=== PATIENT | male | born 1945 | race Caucasian/White ===

== ENCOUNTER 2016-10-19 23:51 | Observation (INO) | payer OTHER ==
[~2016-10-19] VITALS: Ht 276.9 cm; Wt 48.2 kg
[2016-10-20] VITALS (8 sets, daily range): BP systolic 98–127; BP diastolic 57–66
--- NOTE | 2016-10-20 00:19 | NUR ---
PT IS A 70Y/M BIB SPOUSE C/O OF MIDSTERNAL PAIN, NUMBNESS TO LT UPPER ARM W/ DIFFICULTY BREATHING. PT FEELS WEAK ON BOTH LEGS. HX DM, HEART ATTACK 10 YRS AGO.
--- NOTE | 2016-10-20 00:31 | NUR ---
DR. LYONS EVALUATED THE PT
[2016-10-20] MEDS ORDERED: ASPIRIN 325 MG TAB PO ONE (00:35)
[2016-10-20] MEDS ORDERED: MORPHINE SULFATE 4 MG/ML SYR IVP ONE (00:35)
[2016-10-20] MEDS ORDERED: NITROGLYCERIN 2% 1 GM PKT TP ONE (00:35)
--- NOTE | 2016-10-20 00:37 | NUR ---
PT MOVED TO BED 6
--- NOTE | 2016-10-20 00:52 | NUR ---
INCREMENT MANAGER AT BEDSIDE.
--- NOTE | 2016-10-20 01:30 | NUR ---
DR. LYONS REEVALUATING PT AT BEDSIDE
[2016-10-20] MEDS ORDERED: HYDROmorphone 1 MG/ML AMP IVP ONE (01:35)
[2016-10-20] MEDS ORDERED: CLOPIDOGREL 75 MG TAB PO ONE (01:35)
[2016-10-20] MEDS ORDERED: MORPHINE SULFATE 2 MG/ML SYR IVP PRN (01:40)
[2016-10-20] MEDS ORDERED: NITROGLYCERIN 0.4 MG TAB SL PRN (01:40)
[2016-10-20] MEDS ORDERED: MORPHINE SULFATE 4 MG/ML SYR IVP PRN (01:40)
[2016-10-20] MEDS ORDERED: ONDANSETRON 4 MG/2 ML VIAL IVP PRN (01:40)
[2016-10-20] MEDS ORDERED: SIMVASTATIN 40 MG TAB PO ONE (01:45)
--- NOTE | 2016-10-20 02:57 | NUR ---
CALLED TELE TO GIVE REPORT NURSE IN CHARGE WILL CALL BACK.
--- NOTE | 2016-10-20 03:00 | NUR ---
Patient will be admitted to care of DR. PANCHAL. Admited to TELEMETRY. Will go to room 120B. Belongings list completed. Report GIVEN TO CARLITO ROCA.
--- NOTE | 2016-10-20 03:10 | NUR ---
PT TRANSFERRED TO FLOOR VIA GURNEY ACCOMPANIED BY 2 RNS, ATTACHED TO TOOL GRINDER OPERATOR SURFACE. ON GUARDED CONDITION.
--- NOTE | 2016-10-20 03:35 | NUR ---
ADMITTED 70 YEAR OLD FROM ER. PT ARRIVED TO UNIT VIA GURNEY. INITIAL ASSESSMENT COMPLETED. PT AOX4. PT'S VS STABLE. PT'S SKIN IS INTACT. PT HAS IV TO RIGHT AC G 20 SL, ASYMPTOMATIC, PATENT AND INTACT. ORIENTED PT TO ROOM AND SURROUNDINGS AND USE OF CALL LIGHT. EXPLAINED PLAN OF CARE TO PT AND HE VERBALIZES UNDERSTANDING. PT STATES THAT HE IS NOT IN PAIN AT THIS TIME. WILL CONTINUE TO MONITOR PT.
--- NOTE | 2016-10-20 05:30 | NUR ---
PT TALKING WITH WHO IS AT BEDSIDE. PT STABLE, WILL CONTINUE TO MONITOR PT.
--- NOTE | 2016-10-20 06:35 | NUR ---
PT SLEEPING AT THIS TIME, NO SIGNS OF DISTRESS OR DISCOMFORT NOTED. WILL CONTINUE TO MONITOR PT.
--- NOTE | 2016-10-20 07:05 | NUR ---
ENDORSED PT IN STABLE CONDITION TO CARLITO MONTAGUE FOR CONTINUITY OF CARE.
--- NOTE | 2016-10-20 07:06 | NUR ---
RECEIVED REPORT FROM THE AIRLINE RESERVATIONIST NURSE AT BEDSIDE. PT IS MALE, MONGOLIAN SPEAKING. SPEAKS SOME MAURITIAN. PT IS ALERT AND ORIENTED. I INTRODUCED MYSELF AND UPDATED THE BOARD. PT IS HERE FOR CHEST PAIN. NO PAIN AT THIS TIME. NO OTHER COMPLAINTS. PT'S IV IS IN R AC 20G SL. SKIN IS INTACT. NOTED NO SIGNS OF EDEMA. PT HAS A CONSULT W/ DR. RODRIGUES TODAY. WE ARE STILL WAITING FOR 2 MORE TROPONIN. FIRST ONE WAS 0.018. ALL SAFETY MEASURES IN PLACE. WILL CONTINUE TO MONITOR PT.
[2016-10-20] MEDS ORDERED: ENOXAPARIN 30 MG/0.3 ML SYR SUBQ SCH ×2 (09:00→10:33)
[2016-10-20] MEDS: ATORVASTATIN 20 MG TAB PO SCH (09:18)
--- NOTE | 2016-10-20 09:30 | NUR ---
LAB CALLED : TROPONIN PAGED DR. CANO. WAITING FOR HIS RETURN CALL.
--- NOTE | 2016-10-20 10:00 | NUR ---
SPOKE TO DR. RODRIGUES. RECEIVED ORDERS FOR BOLUS 500ML NS, THEREAFTER 75ML/HR 1000ML NS. EKG STAT. LOVENOX 100ML BID. MAY NEED TO TRANSFER PT TO ICU. WE WILL WAIT FOR THE MD. DR. CANO ALSO CALLED. TOLD HIM ABOUT THE D-DIMER LEVEL AND THE TROPONIN LEVEL AND DR. RODRIGUES ORDERED. HE IS IN AGREEMENT. Addendum: 10/20/16 at 1040 by Estefany Gracia RN LOVENOX 100MG. NOT ML. Addendum: 10/20/16 at 1042 by Estefany Gracia RN PER RX CALCULATIONS: 60MG BID
[2016-10-20] MEDS ORDERED: NACL 0.9% 500 ML IV SCH (10:15)
[2016-10-20] MEDS ORDERED: LOVENOX 1MG/KG Q12H SUBQ SCH (10:15)
--- NOTE | 2016-10-20 10:38 | NUR ---
ADMINISTERED BOLUS. RESPIRATORY CAME. EKG DONE. PT TOLERATED WELL. PT IS ASYMPTOMATIC. WILL CONTINUE TO MONITOR PT.
[2016-10-20] MEDS: NACL 0.9% 1,000 ML IV SCH (10:59)
--- NOTE | 2016-10-20 11:41 | NUR ---
2ND EKG COMPLETED BY REQUEST OF . RESULTS GIVEN TO NURSE MONTAGUE WHO SHOWED . NURSE MONTAGUE WILL PLACE COPY IN CHART.
--- NOTE | 2016-10-20 11:50 | NUR ---
DR. RODRIGUES SAW PT AND EXPLAINED PROCEDURE TO PT. PT VERBALIZED UNDERSTANDING AND DECIDED TO HAVE THE PROCEDURE DONE. WILL BE WAITING FOR D/C. THE SON WAS PRESENT FOR THE DISCUSSION. WILL CONTINUE WITH DC.
--- NOTE | 2016-10-20 12:00 | NUR ---
DISCHARGE PAPERWORK ALL DONE. WENT OVER DISCHARGE INSTRUCTIONS WITH PT. PT AWARE THEY WILL BE GOING TO [facility] , PROCESS SPECIALIST TO DO HIS ANGIOGRAM. SL HIS IV. WILL WAIT TO REMOVED ARM BANDS AND TELE BOX MARYAM PEDERSON COMES TO PICK PT UP
--- NOTE | 2016-10-20 12:30 | NUR ---
SPOKE TO ROSSY AT [facility]. GAVE FULL REPORT. THEY WILL WAIT FOR PT. ESTIMATED ETA 30 MIN???
[2016-10-20] MEDS ORDERED: ATORVASTATIN CA20 MG PO (12:44)
[2016-10-20] MEDS ORDERED: LOVENOX60 MG/0.1 SUBQ (12:44)
[2016-10-20] MEDS ORDERED: NITROSTAT0.4 MG SL (12:44)
[2016-10-20] MEDS ORDERED: MORPHINE SU2 MG/1 ML IVP (12:44)
[2016-10-20] MEDS ORDERED: ASPIRIN325 M2 PO (12:44)
[2016-10-20] MEDS ORDERED: NOVAPLUS ONDA2 MG/M1 IVP (12:44)
[2016-10-20] MEDS ORDERED: MORPHINE SULF IVP (12:44)
--- NOTE | 2016-10-20 14:00 | NUR ---
[facility] NOT HERE. YULY CALLED AND THERE WILL BE A DELAY FOR AT LEAST 90 MIN. PER [facility], WILL NEED TO CANCEL PROCEDURE TODAY AND RESCHEDULE FOR TOMORROW MORNING. CALLED DR. RODRIGUES. DR. NAVA. WE WILL HOLD ALL D/C UNTIL TOMORROW. DISCHARGE PAPERS THAT WERE SIGNED IS IN THE SOFT CHART.
--- NOTE | 2016-10-20 14:30 | NUR ---
CALLED [facility] TO CANCEL HOSPITAL LABORATORY TECHNICIAN TODAY AND SPOKE TO KATIE, INSTEAD RE SCHEDULE TOMORROW AT 9AM.
--- NOTE | 2016-10-20 15:00 | NUR ---
PT TO HAVE CARDIAC DIET FOR LATE LUNCH AND DINNER, LIGHT BREAKFAST, AND THEN NPO AFTER BREAKFAST. [facility] WILL COME AND SENIOR SOFTWARE TESTER PT TO [facility]. CHECK IN AT ER ADMISSIONS AND OFF TO ASSISTANT KITCHEN MANAGER. SPOKE TO PT AND FAMILY AND GAVE THEM UP THE UPDATES. PT STABLE. NO SIGNS OF DISTRESS. WILL CONTINUE TO MONITOR PT.
--- NOTE | 2016-10-20 16:14 | NUR ---
LAB JUST CALLED WITH CRITICAL: TROPONIN [phone] RODRIGUES[address]
--- NOTE | 2016-10-20 16:21 | NUR ---
SPOKE TO DR. RODRIGUES. AWARE OF HIGH TROPONIN LEVELS. NO CHANGES IN ORDER. WILL RESUME WITH TRANSFER TOMORROW MORNING.
--- NOTE | 2016-10-20 18:03 | NUR ---
SPOKE TO FRANCISCO RN IN ICU. DR. RODRIGUES WROTE ORDERS FOR PT TO BE TRANSFERRED TO ICU FOR OVERNIGHT OBSERVATION SINCE WE RECEIVED A HIGHER 3RD READING AT 17.516. NOTIFIED PT OF TRANSFER. GAVE FRANCISCO FULL REPORT. WILL TAKE PT OVER TO THE ICU AT 1830. PT AWARE.
--- NOTE | 2016-10-20 18:35 | NUR ---
OUR 2 NURSES TRANSFERRED PT TO ICU.
--- NOTE | 2016-10-20 18:45 | NUR ---
RECEIVED THE PATIENT FROM TELEMETRY TO ICU 5 FOR CLOSE OBSERVATION DUE TO ELEVATED TROPONIN WITH NON-ST ELEVATION NC. PATIENT IS AWAKE,ALERT AND ORIENTED X 4. SPEECH IS CLEAR. PRODUCTION SCHEDULER SHOWS SINUS RHYTHM. NO ECTOPY. RESP IS NORMAL. NO COUGH. ROOM AIR O2 SAT 99%. LUNG SOUNDS CLEAR. ABDOMEN IS SOFT. NONTENDER. PATIENT DENIES NAUSEA. SKIN IS WARM,DRY AND INTACT. NO EDEMA. PATIENT ABLE TO MOVE ALL EXTREMITIES WELL WITH SELF TURN. HAS IV OF 0.9 NS INFUSING AT 75 ML/HR ON RT AC. PATIENT DENIES CHEST PAIN OR CHEST DISCOMFORT. CONDITION IS STABLE. EXPLAINED SAFETY AND PLAN OF CARE THAT INCLUDED NPO AFTER MIDNIGHT FOR ANGIOGRAM AT [facility] TOMORROW.
--- NOTE | 2016-10-20 19:10 | NUR ---
PATIENT'S DAUGHTER PRESENT AT BEDSIDE,UPDATED HER IN PATIENT'S CONDITION AND PLAN OF CARE. MADE HER AWARE OF PATIENT HAS FULL DENTURE UPPER / LOWER AND EYE GLASSES.
--- NOTE | 2016-10-20 19:20 | NUR ---
RECEIVED PATIENT REPORT FROM DAY SHIFT PSYCHIATRIC NURSE PRACTITIONER RAWI. FULL CODE, ON PATIENT REGISTRATION CLERK. VITALLY STABLE. AWAKE, ALERT, ORIENTED X4. ON ROOM AIR. PERIPHERAL IV G20 ON RIGHT AC RUNNING IVF OF NS AT 75ML/HR VIA INFUSION PUMP. WEARING BOTH UPPER AND LOWER DENTURES WITH GLASSES. DENIES CHEST PAIN, ANY PAIN, DISCOMFORT OR DISTRESS NOR SHORTNESS OF BREATH AT THIS TIME. SKIN INTACT. MOVES ALL EXTREMITIES AND TURNS ON BED BY HIMSELF. ABDOMEN SOFT. CHEST LUNG SOUNDS ARE CLEAR. BED IN LOW POSITION. CALL LIGHT GIVEN TO PATIENT AT BEDSIDE. FOR TRANSFER TO [facility] TOMORROW 9AM.
--- NOTE | 2016-10-20 19:20 | NUR ---
CONDITION IS STABLE. DENIES PAIN. REPORT GIVEN TO NURSE EVENS ESTEBAN FOR CONTINUITY OF CARE.
[2016-10-20] MEDS ORDERED: SIMVASTATIN 40 MG TAB PO SCH (21:00)
--- NOTE | 2016-10-20 21:47 | NUR ---
FAMILY AT BEDSIDE WITH FEED GRINDER DEE. QUESTIONS ANSWERED. PATIENT TURNS ON BED BY HIMSELF. VITALLY STABLE, NO SIGNS OF RESPIRATORY DISTRESS OR DISCOMFORT OR CHEST PAIN AT THIS TIME.
[2016-10-20] MEDS: METOPROLOL 25 MG TAB PO SCH (21:53)
[2016-10-20] MEDS: ENOXAPARIN 60 MG/0.6 ML SYR SUBQ SCH (21:54)
--- NOTE | 2016-10-20 22:14 | NUR ---
BLOOD SUGAR TAKEN = 114.
--- NOTE | 2016-10-20 23:15 | NUR ---
PATIENT REQUESTED FOR SANDWICH. FOOD TOLERATED. NO ASPIRATION OR VOMITING NOTED. DENIES PAIN, DISCOMFORT, DISTRESS AT THIS TIME.
[2016-10-21] VITALS: BP 104/52
[2016-10-21 02:00] VITALS: BP 110/55
[2016-10-21] MEDS: NACL 0.9% 1,000 ML IV SCH (02:00)
--- NOTE | 2016-10-21 02:17 | NUR ---
VOIDED FREELY. POSITIONED HIMSELF ON BED. DENIES CHEST PAIN, DISCOMFORT OR DISTRESS AT THIS TIME. CALL LIGHT AT BEDSIDE. BED IN LOW POSITION.
[2016-10-21 04:00] VITALS: BP 121/69
--- NOTE | 2016-10-21 04:00 | NUR ---
PATIENT PROVIDED HIMSELF WITH SPONGE BATH WITH ASSISTANCE. STILL UNDER CLOSE OBSERVATION AND ON RN BEHAVIORAL HEALTH. ALL LINENS, GOWN CHANGED. MORNING CARE TOLERATED BY THE PATIENT. DENIES CHEST PAIN, DISTRESS OR DISCOMFORT AT THIS TIME.
--- NOTE | 2016-10-21 04:20 | NUR ---
MADE A PHONE CALL TO [facility] [phone] SEVERAL TIMES BUT CALL ISN'T GOING THROUGH. ASKED ER, TELE, AND PIN CLEANER TO VERIFY PHONE NUMBER. AIRCRAFT ENGINE ASSEMBLER HILLARY AND PIN CLEANER ELIZA INFORMED THAT PHONE NUMBER PROVIDED CAN'T BE REACHED.
--- NOTE | 2016-10-21 04:45 | NUR ---
PHONE WAS PROVIDED FROM [facility] DEPARTMENT THE [facility] MAIN OFFICE. GPS NAVIGATION INSTALLER DEE MADE A PHONE CALL TO THIS NUMBER AND ACCORDING TO THE VOICE PROMPT, OFFICE WILL OPEN 8AM.
--- NOTE | 2016-10-21 05:25 | NUR ---
ELIZA CALLED AND GAVE PATIENT REPORT TO [facility] TO SCHEDULE PATIENT FOR PICK-UP.
--- NOTE | 2016-10-21 05:45 | NUR ---
WHEN DIALED [facility] PHONE NUMBER, CALL WAS TRANSFERRED AND HAD A CONVERSATION WITH [facility] STAFF MAGALYS. INFORMATION VERIFIED THAT PICK-UP TIME IS 9AM TO [facility]. RELASTER DEE INFORMED. Addendum: 10/21/16 at 0655 by Trixie Moreira RN ELIZA CRUDE UNIT OPERATOR INFORMED.
[2016-10-21 06:00] VITALS: BP 124/66
--- NOTE | 2016-10-21 07:05 | NUR ---
CALLED [facility] DEPARTMENT AND SPOKE WITH STAFF TO GIVE REPORT BUT THEY SAID TO CALL BACK AFTER 15-20MINS.
--- NOTE | 2016-10-21 07:30 | NUR ---
CALLED [facility] [employer] [facility] DEPARTMENT AND SPOKE WITH LATHA. PATIENT REPORT AND INFORMATION GIVEN. INFORMED THAT PATIENT WILL BE PICKED UP AT 9AM BY MARYAM. PROCEDURE WILL BE DONE AT 1PM ACCORDING TO LATHA. LAST LABS AND VITALS GIVEN. Addendum: 10/21/16 at 0736 by Trixie Moreira RN SHAGGER DEE WILL TAKE OVER PATIENT.
--- NOTE | 2016-10-21 07:45 | NUR ---
AWAKE,ALERT, ORIENTED X 4. DENIES ANY CHEST PAINS. IV 0.9 NS AT 75 ML/HR VIA RT ANTECUBITAL IV SITE. NPO EXCEPT MEDS.
[2016-10-21 08:00] VITALS: BP 118/63
[2016-10-21 08:05] VITALS: BP 118/63
[2016-10-21] MEDS: METOPROLOL 25 MG TAB PO SCH (08:06)
[2016-10-21] MEDS: ENOXAPARIN 60 MG/0.6 ML SYR SUBQ SCH (08:07)
[2016-10-21] MEDS: ATORVASTATIN 20 MG TAB PO SCH (08:10)
--- NOTE | 2016-10-21 08:50 | NUR ---
[facility] CALLED THEY WILL BE HERE TO BOOT AND SHOE REPAIRMAN PT AT 0930 INSTEAD OF 0900.
[2016-10-21] MEDS ORDERED: ASPIRIN 325 MG TAB PO SCH (09:00)
--- NOTE | 2016-10-21 09:00 | NUR ---
LAURO HELD DUE TO SB HR IN THE 50'S. LOVENOX ALSO HELD FOR HEART CATH TODAY. DR. LILIA NAVA.
--- NOTE | 2016-10-21 09:08 | NUR ---
PATIENT HAS BEEN SCREENED AND CATEGORIZED MODERATE NUTRITION RISK. PATIENT WILL BE SEEN WITHIN 3-5 DAYS OF ADMISSION. 10/23/16-10/25/[address]
--- NOTE | 2016-10-21 09:50 | NUR ---
IV SITE CHANGED TO [facility] FOR TRANSPORT.
--- NOTE | 2016-10-21 09:55 | NUR ---
DISCHARGED TO [facility] VIA [facility]. PT IS AWAKE AND ALERT. DENIES ANY DISCOMFORTS.
== END 2016-10-21 09:55 | disposition short-term general hospital (02) ==
LOC: MED 23:51 → MTU 10-20 01:47 → MIC 10-20 19:16
PROVIDERS: ADMIT Internal Medicine Pulmonary Disease; ATTEND Internal Medicine Pulmonary Disease
DX: I21.4 Non-ST elevation (NSTEMI) myocardial infarction (principal); F17.200 Nicotine dependence, unspecified, uncomplicated; E11.9 Type 2 diabetes mellitus without complications; I10 Essential (primary) hypertension; I25.2 Old myocardial infarction
CPT/HCPCS: 36415; 71010; 80053; 80061; 82550; 82553; 82948; 83880; 84484; 85025; 85379; 85610; 85730; 87081; 93005; 96361; 96372; 96374; 96375; 99291; G0378; J1170; J1650; J2270; J7030; Q0092